=== PATIENT | male | born 1965 | race Caucasian/White ===

== ENCOUNTER 2017-03-15 18:58 | Emergency (ER) | payer OTHER ==
[2017-03-15 19:14] VITALS: BP 129/88; TEMP 98.5; BMI 25.2
[2017-03-15] MEDS ORDERED: KETOROLAC TROMETHAMINE 30 MG/1 ML VIAL IM ONE (19:53)
[2017-03-15] MEDS ORDERED: KETOROLAC TROMETHAMINE 30 MG/1 ML VIAL ONE (19:55)
--- NOTE | 2017-03-15 20:16 | PDOC ---
History of Present Illness - General Chief Complaint: Chronic pain Stated Complaint: PAIN Time Seen by Provider: 03/15/17 19:28 History Source: Patient - History of Present Illness Initial Comments: 03/15/17 19:53 51 year old male c/o right ankle pain for many years reports increase in pain in the last several weeks. " I feel like my bone is broken" . denies recent trauma/ injury. no swelling noted Past History - Past Medical History Allergies/Adverse Reactions: Allergies Allergy/AdvReac Type Severity Reaction Status Date / Time No Known Allergies Allergy Verified 03/15/17 19:14 Home Medications: Ambulatory Orders Ibuprofen 600 mg PO QID PRN #20 tablet 03/15/17 Other medical history: PATIENT DENIES MEDICAL HX - Suicide/Smoking/Psychosocial Hx Smoking History: Never smoked Hx Alcohol Use: No Drug/Substance Use Hx: No Review of Systems - Review of Systems Able to Perform ROS?: Yes Is the patient limited Camb[place]ian proficient: No Constitutional: No: Symptoms Reported, See HPI, Chills, Diaphoresis, Fever, Loss of Appetite, Malaise, Night Sweats, Weakness, Weight Stable, Unintentional Wgt. Loss, Unexplained wgt Loss, Other Musculoskeletal: Yes: Other (right ankle pain). No: Symptoms Reported, See HPI , Back Pain, Gout, Joint Pain, Joint Swelling, Muscle Pain, Muscle Weakness, Neck Pain, Joint Stiffness *Physical Exam - Vital Signs Last Vital Signs Temp Pulse Resp BP Pulse Ox 98.5 F 129/88 03/15/17 19:11 03/15/17 19:11 - Physical Exam General Appearance: Yes: Appropriately Dressed Gastrointestinal/Abdominal: positive: Normal Bowel Sounds, Soft Extremity: positive: Other (limited rom. no pedal edema + pedal pulse. ) Integumentary: positive: Normal Color, Dry, Warm Neurologic: positive: Fully Oriented, Alert, Normal Mood/Affect ED Treatment Course - RADIOLOGY Radiograph Interpretation: 03/15/17 20:17 xray negative. official read pending. Medical Decision Making - Medical Decision Making 03/15/17 20:17 A: ankle pain P: xray NSAIDS *DC/Admit/Observation/Transfer Diagnosis at time of Disposition: Right ankle pain Qualifiers: Chronicity: acute Qualified Code(s): M25.571 - Pain in right ankle and joints of right foot - Discharge Dispostion Disposition: HOME Condition at time of disposition: Good - Prescriptions Prescriptions: Ibuprofen 600 mg PO QID PRN #20 tablet PRN Reason: Pain - Referrals Referrals: Darrion August [Primary Care Provider] - Call tomorrow George Parrish MD [Staff Physician] - - Patient Instructions Printed Discharge Instructions: DI for Ankle Pain Additional Instructions: take ibuprofen every 6 hours as needed for pain follow up with your doctor as soon as possible.
[2017-03-15 20:29] VITALS: PULSE 64
== END 2017-03-15 20:30 | disposition home or self-care (01) ==
LOC: JERFT 18:58
PROC: 3E0233Z Introduction of Anti-inflammatory into Muscle, Percutaneous Approach (ICD-10-PCS; principal; 2017-03-15)
DX: M25.571 Pain in right ankle and joints of right foot (principal)
CPT/HCPCS: 73610-TC-RT; 73630-TC-RT; 96372; 99281-25

== ENCOUNTER 2017-07-18 15:27 | Emergency (ER) | payer OTHER ==
[2017-07-18 15:42] VITALS: BP 141/87; PULSE 94; TEMP 98.3; BMI 27.3
--- NOTE | 2017-07-18 17:39 | PDOC ---
History of Present Illness - General Chief Complaint: Pain, Acute Stated Complaint: ABDOMINAL PAIN Time Seen by Provider: 07/18/17 17:38 - History of Present Illness Initial Comments: 07/19/17 00:31 Chief complaint abdominal discomfort History of present illness: This is a 52-year-old gentleman with no past medical history who presented to the emergency department with 1 week history of intermittent epigastric discomfort. Patient comes and goes no exacerbating or alleviating factors does not seem to be associated with meals. Denies fever chills chest pain shortness of breath nausea vomiting or diarrhea pain is achy located predominantly in his epigastrium Past History - Past Medical History Allergies/Adverse Reactions: Allergies Allergy/AdvReac Type Severity Reaction Status Date / Time No Known Allergies Allergy Verified 07/18/17 15:39 Home Medications: Ambulatory Orders Ibuprofen 600 mg PO QID PRN #20 tablet 03/15/17 - Suicide/Smoking/Psychosocial Hx Smoking History: Never smoked Hx Alcohol Use: No Drug/Substance Use Hx: No Review of Systems - Review of Systems Comments:: 07/19/17 00:32 ROS: A complete review of 10 out of 10 review of systems is taken and is negative apart from what is previously mentioned below and in the HPI. *Physical Exam - Vital Signs Last Vital Signs Temp Pulse Resp BP Pulse Ox 98.3 F 94 H 19 141/87 98 07/18/17 15:39 07/18/17 15:39 07/18/17 15:39 07/18/17 15:39 07/18/17 15:39 - Physical Exam Comments: 07/19/17 00:32 Vitals: Triage Vital signs reviewed General Appearance: no acute distress, well nourished well developed, Head: Atraumatic, Chest Wall: Nontender Cardiac: Regular rate and rhythym, no murmurs, no rubs, no gallops, Lungs: Clear to auscultation bilateral, good air movement bilaterally, Abdomen: Soft, non distended, normal bowel sounds, non tender to palpation Extremities: Full range of motion to all extremities, no cyanosis, clubbing, or edema Skin: Warm and dry, no rashes or lesions, no rash, no petechiae Psych: normal mood, normal affect 07/19/17 01:18 Medical Decision Making - Medical Decision Making 07/19/17 00:33 Well-appearing no apparent distress history and examination with no acute abdominal exam findings Given one week of symptomatology with pain in his epigastrium we'll perform labs consider CAT scan and reassess Reevaluation was informed by the nurse when he for the patient to initiate blood work patient had eloped I attempted to call the patient at home but there was no answer *DC/Admit/Observation/Transfer Diagnosis at time of Disposition: Abdominal pain Qualifiers: Abdominal location: unspecified location Qualified Code(s): R10.9 - Unspecified abdominal pain - Discharge Dispostion Disposition: ELOPED Condition at time of disposition: Unchanged/Unknown - Referrals Referrals: Darrion August [Primary Care Provider] - - Patient Instructions - Post Discharge Activity
[2017-07-18] MEDS ORDERED: MAG HYDROX/AL HYDROX/SIMETH 30 ML UNIT-DOSE CUP PO ONE (17:46)
[2017-07-18] MEDS ORDERED: SODIUM CHLORIDE 0.9% 1000 ML INFUS.BAG IV ONE (17:47)
[2017-07-18] MEDS ORDERED: FAMOTIDINE 20 MG/50 ML IVPB 20 MG/50 ML MG IVPB ONE (18:38)
[2017-07-18] MEDS ORDERED: MAG HYDROX/AL HYDROX/SIMETH 30 ML UNIT-DOSE CUP ONE (18:38)
[2017-07-18] MEDS ORDERED: FAMOTIDINE IV 20 MG/12 ML VIAL IVPUSH SCH (22:00)
== END 2017-07-18 18:00 | disposition left against medical advice (07) ==
LOC: JER 15:27
DX: R10.9 Unspecified abdominal pain (principal)
CPT/HCPCS: 99281-25